=== PATIENT | male | born 1995 | race Caucasian/White ===

== ENCOUNTER 2021-07-13 19:09 | Emergency (ER) | payer OTHER ==
[~2021-07-13] VITALS: Ht 180.3 cm; Wt 84.4 kg
== END 2021-07-13 21:14 | disposition home or self-care (01) ==
LOC: ER 19:09
DX: B34.9 Viral infection, unspecified (principal); Z03.818 Encounter for observation for suspected exposure to other biological agents ruled out; R51.9 Headache, unspecified

== ENCOUNTER 2021-07-18 09:50 | Emergency (ER) | payer OTHER ==
[~2021-07-18] VITALS: Ht 180.3 cm; Wt 84.4 kg
== END 2021-07-18 13:41 | disposition home or self-care (01) ==
LOC: ER 09:50
DX: H65.191 Other acute nonsuppurative otitis media, right ear (principal)